=== PATIENT | male | born 1960 | race Caucasian/White ===

== ENCOUNTER → 2017-04-12 | Outpatient (CLI) | payer BC | END | disposition home or self-care (01) | LOC: PCVCIMAG 15:39 | PROVIDERS: ATTEND Nuclear Medicine Nuclear Cardiology | DX: I70.211 Atherosclerosis of native arteries of extremities with intermittent claudication, right leg (principal); I10 Essential (primary) hypertension; E78.00 Pure hypercholesterolemia, unspecified; Z95.820 Peripheral vascular angioplasty status with implants and grafts | CPT/HCPCS: 93923; 93926; G0463; 93924 ==

== ENCOUNTER → 2017-10-15 | Outpatient (CLI) | payer BC ==
--- NOTE | 2017-10-15 15:13 | PCVCIMAG ---
EXAM: NONINVASIVE ARTERIAL EXAMINATION OF BOTH LOWER EXTREMITIES INCLUDING PRE AND POST EXERCISE PRESSURE MEASUREMENTS AND DOPPLER WAVEFORMS INDICATION: Peripheral Arterial Disease. Leg pain. FINDINGS: Right Brachial: 172 mm Hg. Right Dorsalis Pedis: 106 mm Hg. Right Posterior Tibial: 175 mm Hg. Right JEREMY = 1.01. Left Brachial: 173 mm Hg. Left Dorsalis Pedis: 140 mm Hg. Left Posterior Tibial: 194 mm Hg. Left JEREMY = 1.12. Post Exercise: Left Brachial 199 mm Hg. Right Posterior Tibial: 105 mm Hg. Left Posterior Tibial: 212 mm Hg. Right JEREMY = 0.53. Left JEREMY = 1.07. IMPRESSION: No resting ischemia in the right lower extremity. No exercise induced ischemia in the right lower extremity. Moderate resting ischemia in the left lower extremity. No exercise induced ischemia in the left lower extremity. LOC:[id number]
--- NOTE | 2017-10-15 16:11 | PCVCIMAG ---
EXAM: BILATERAL CAROTID DUPLEX INDICATION: Carotid Occlusive Disease. FINDINGS: Doppler Measurements (centimeters per second): RIGHT: Peak CCA-96, Peak ECA-95, Diastolic ICA-32, Peak ICA-97, ICA/CCA Ratio-1.0. LEFT: Peak CCA-106, Peak ECA-123, Diastolic ICA-32, Peak ICA-140, ICA/CCA Ratio-1.3. RIGHT CAROTID: The carotid bulb has mild plaque. The proximal internal carotid artery shows <40% stenosis. The common carotid artery shows no significant stenosis. The external carotid artery shows no significant stenosis. LEFT CAROTID: The carotid bulb has mild plaque. The proximal internal carotid artery shows 40-50% stenosis. The common carotid artery shows no significant stenosis. The external carotid artery shows no significant stenosis. Antegrade flow in both vertebral arteries. IMPRESSION: <40% stenosis of the right internal carotid artery with mild plaque. 40-50% stenosis of the left internal carotid artery with mild plaque. LOC:[id number]
--- NOTE | 2017-10-15 16:29 | PCVCIMAG ---
EXAM: BILATERAL LOWER EXTREMITY ARTERIAL DUPLEX INDICATION: Peripheral Arterial Disease. Leg pain. FINDINGS: Right Leg: Satisfactory arterial waveforms in the common femoral and profunda femoral artery. Increased systolic velocity of 504 cm/s in the proximal superficial femoral artery and the proximal portion of previous stent consistent with 95% stenosis. Mid and distal superficial femoral artery and stent are patent. The popliteal artery is patent. The anterior tibial, peroneal, and posterior tibial arteries are patent. Left Leg: Satisfactory arterial waveforms throughout the common/profunda/superficial femoral, popliteal, anterior tibial, peroneal, and posterior tibial arteries. No flow limiting stenosis seen. IMPRESSION: Interval development of 95% stenosis proximal right superficial femoral artery within the proximal margin of prior stent. No flow limiting stenosis in the left lower extremity. LOC:[id number]
== END | disposition home or self-care (01) ==
LOC: PCVCIMAG 14:23
PROVIDERS: ATTEND Nuclear Medicine Nuclear Cardiology
DX: I73.9 Peripheral vascular disease, unspecified (principal); I77.9 Disorder of arteries and arterioles, unspecified; I10 Essential (primary) hypertension; E78.00 Pure hypercholesterolemia, unspecified; F17.200 Nicotine dependence, unspecified, uncomplicated; M79.604 Pain in right leg; M79.605 Pain in left leg; Z79.82 Long term (current) use of aspirin
CPT/HCPCS: 93880; 93923; 93925; G0463; 93924

== ENCOUNTER → 2017-11-26 | Outpatient (CLI) | payer BC ==
[~2017-11-26] MED LIST: DIAZEPAM 10 MG TABLET.; EPINEPHrine 1 MG/ML VIAL; EPTIFIBATIDE BOLUS 2,000 MCG/ML 10ML VIAL. IV; FAMOTIDINE 20 MG/2 ML VIAL; HEPARIN SODIUM 5,000 UNIT/ML VIAL for PCVC.; IODIXANOL 270 MG/ML 100 ML VIAL.; IOHEXOL 350 MG/ML 100 ML VIAL.; IOHEXOL 350 MG/ML 50 ML VIAL.; IV NORMAL SALINE 1000ML BAG 1,000 ML; IV NORMAL SALINE 50ML 50 ML; LIDOCAINE 1% Multi-Dose 20 ML VIAL.; MIDAZOLAM HCL/PF 2 MG/2 ML VIAL.; NITROGLYCERIN PREMIX 250 ML IV; ceFAZolin SODIUM 1 GM VIAL; diphenhydrAMINE 50 MG/ML VIAL; fentaNYL PF VIAL 100 MCG/2 ML VIAL; hydrALAZINE 20 MG/ML VIAL.; methylPREDNISolone SOD SUCC PF 125 MG/2 ML VIAL.
== END | disposition home or self-care (01) ==
LOC: PCVCINTER 08:48
DX: I70.211 Atherosclerosis of native arteries of extremities with intermittent claudication, right leg (principal); I10 Essential (primary) hypertension; I70.1 Atherosclerosis of renal artery; E78.00 Pure hypercholesterolemia, unspecified; E78.5 Hyperlipidemia, unspecified
CPT/HCPCS: 36252; 37186; 37227; 75716; 76937; 93458; 99152; 99153; C1725; C1751; C1757; C1760; C1769; C1781; C1874; C1876; C1885; C1887; C1894; C2623; J0171; J0360; J0690; J1200; J1327; J1644; J2250; J2930; J3010; J3490; J7030; Q9967; S0028

== ENCOUNTER → 2018-07-17 | Outpatient (CLI) | payer BC ==
--- NOTE | 2018-07-17 15:16 | PCVCIMAG ---
EXAM: NONINVASIVE ARTERIAL EXAMINATION OF BOTH LOWER EXTREMITIES INCLUDING PRE AND POST EXERCISE PRESSURE MEASUREMENTS AND DOPPLER WAVEFORMS INDICATION: Peripheral Arterial Disease. Leg pain. FINDINGS: Right Brachial: 171 mm Hg. Right Dorsalis Pedis: 74 mm Hg. Right Posterior Tibial: 84 mm Hg. Right JEREMY = 0.49. Left Brachial: 170 mm Hg. Left Dorsalis Pedis: 169 mm Hg. Left Posterior Tibial: 194 mm Hg. Left JEREMY = 1.13. Post Exercise: Right Brachial 177 mm Hg. Right Posterior Tibial: 31 mm Hg. Left Posterior Tibial: 200 mm Hg. Right JEREMY = 0.18. Left JEREMY = 1.13. IMPRESSION: Moderate resting ischemia in the right lower extremity. Severe exercise induced ischemia in the right lower extremity. No resting ischemia in the left lower extremity. No exercise induced ischemia in the left lower extremity. LOC:[id number]
--- NOTE | 2018-07-17 15:23 | PCVCIMAG ---
EXAM: RIGHT LOWER EXTREMITY ARTERIAL DUPLEX INDICATION: Peripheral Arterial Disease. Leg pain. FINDINGS: Right Leg: Common femoral and profunda femoral arteries are patent. Complete occlusion throughout the superficial femoral artery within prior stent graft and the upper [place] popliteal artery has developed since November 2017. There is refilling of the mid and distal popliteal artery. The anterior tibial, peroneal, and posterior tibial arteries are patent. IMPRESSION: Interval development of occlusion throughout the superficial femoral artery and upper popliteal artery as detailed above since November 2017. LOC:[id number]
== END | disposition home or self-care (01) ==
LOC: PCVCIMAG 15:40
PROVIDERS: ATTEND Nuclear Medicine Nuclear Cardiology
DX: I73.9 Peripheral vascular disease, unspecified (principal)
CPT/HCPCS: 93923; 93926; 93924

== ENCOUNTER → 2018-11-13 | Outpatient (CLI) | payer BC ==
--- NOTE | 2018-11-13 16:12 | PCVCIMAG ---
APPROVED REPORT Indications Stenosis Current Smoker Doppler Spectral Velocity Analysis PSV / EDVPSV / EDV ECA (R) 113 / 15 cm/sECA (L) 92 / 14 cm/s dICA (R) 75 / 21 cm/sdICA (L) 95 / 31 cm/s Tho (R) 80 / 25 cm/smICA (L) 126 / 24 cm/s pICA (R) 85 / 19 cm/spICA (L) 101 / 22 cm/s Bulb (R) 80 / 15 cm/sBulb (L) 78 / 14 cm/s dCCA (R) 87 / 18 cm/sdCCA (L) 102 / 18 cm/s mCCA (R) 101 / 20 cm/smCCA (L) 152 / 27 cm/s Vert (R) 62 / 12 cm/sVert (L) 62 / 9 cm/s ICA/CCA 0.98ICA/CCA 1.24 Basic Measurements Blood Pressure: Pulses: Right Left RightLeft Brachial(Sitting) 150/23xtXt239/79mmHgTemporal Real Time B-Mode Imaging Vert. (R)AntegradeVert. (L)Antegrade Findings The right carotid bulb has mild plaque. The right proximal internal carotid artery shows no significant stenosis. The right common carotid artery shows no significant stenosis. The right external carotid artery shows no significant stenosis. The left carotid bulb has moderate plaque. The left proximal internal carotid artery shows 40-50% stenosis. The left common carotid artery shows no significant stenosis. The left external carotid artery shows no significant stenosis. Conclusion 1. Right internal carotid artery plaquing 2. Left internal carotid artery stenosis (40-50%) 3. Antegrade vertebral flow Similar to September 2017
== END | disposition home or self-care (01) ==
LOC: PCVCIMAG 14:19
PROVIDERS: ATTEND Internal Medicine
DX: I65.23 Occlusion and stenosis of bilateral carotid arteries (principal); F17.200 Nicotine dependence, unspecified, uncomplicated
CPT/HCPCS: 93880